=== PATIENT | female | born 1960 | race Caucasian/White ===

== ENCOUNTER 2017-02-01 23:27 | Emergency (ER) | payer SELFPAY ==
[~2017-02-01] VITALS: Ht 160 cm; Wt 66.8 kg
[~2017-02-01 23:27] MED LIST: CIPROFLOXACN500 MG PO; LORTAB 10-325 M1 TAB PO; METRONIDAZOL500 MG PO; NO
[2017-02-02 00:07] LABS: URINE BILIRUBIN - DIPSTICK NEGATIVE (NEGATIVE); URINE BLOOD DIPSTICK TRACE-LYSED (NEGATIVE); URINE CLARITY SLIGHT CLOUDY; URINE COLOR YELLOW; URINE GLUCOSE - DIPSTICK NEGATIVE (NEGATIVE); URINE KETONE NEGATIVE (NEGATIVE); URINE LEUK ESTERASE NEGATIVE (NEGATIVE); URINE NITRITE - DIPSTICK NEGATIVE (Negative); URINE PH 5.5 (4.5-8.0); URINE PROTEIN - DIPSTICK NEGATIVE (NEG-TRACE); URINE UROBILINOGEN - DIPSTICK 0.2 E.U./dL (0.2)
[2017-02-02 00:16] LABS: HEMATOCRIT 43.4 % (37.0-47.0); HEMOGLOBIN 14.4 g/dl (12.0-16.0); IMMATURE GRANULOCYTES 0.4 % (0.0-1.0); MEAN CORPUSCULAR HGB 29.9 pG CALC (26.0-32.0); MEAN CORPUSCULAR HGB CONC 33.2 g/L CALC (32.0-36.0); NEUT# 6.51 thou/uL (2.00-7.15); RED BLOOD COUNT 4.82 mill/uL (4.20-5.60); RED CELL DISTRI WIDTH 12.7 % (11.5-15.5)
[2017-02-02 00:32] LABS: ALBUMIN 4.4 g/dL (3.2-5.0); ALKALINE PHOSPHATASE 103 u/l (38-126); AMYLASE 79 u/l (30-110); ANION GAP 15 (6-22 (CALC)); BILIRUBIN, TOTAL 0.3 mg/dL (0.0-1.4); BUN 13 mg/dL (7-17); BUN/CREATININE RATIO 16 (12-20 (CALC)); CALCIUM 9.6 mg/dL (8.4-10.2); CARBON DIOXIDE 27 mmol/l (22-30); CHLORIDE 104 mmol/l (95-108); CREATININE 0.8 mg/dL (0.5-1.0); GFR > 60 ML/MIN (>=60 (CALC)); GFR FOR AFR.AMER. > 60 ML/MIN (>=60 (CALC)); GLUCOSE 91 mg/dL (65-105); LIPASE 135 u/l (23-300); POTASSIUM 3.9 mmol/l (3.5-5.1); SGOT/AST 23 u/l (14-36); SGPT/ALT 33 u/l (9-52); SODIUM 142 mmol/l (137-146); TOTAL PROTEIN 7.8 g/dL (6.3-8.2)
[2017-02-02 00:40] LABS: MYOGLOBIN 24 ng/mL (0 - 62)
[2017-02-02] MEDS ORDERED: CLARITHROMYC500 M2 PO (02:05)
[2017-02-02] MEDS ORDERED: AMPICILLIN500 MG PO (02:05)
[2017-02-02] MEDS ORDERED: PREVACID30 M1 PO (02:05)
[2017-02-02] MEDS ORDERED: ZOFRAN ODT4 MG PO (02:06)
[2017-02-02] MEDS ORDERED: ULTRAM50 M1 PO (02:18)
[2017-02-02 02:30] VITALS: BP 131/83
== END 2017-02-02 02:30 | disposition home or self-care (01) | DRG 392 ==
LOC: ED 23:27
PROVIDERS: Emergency Medicine
DX: R10.11 Right upper quadrant pain (principal); K27.9 Peptic ulcer, site unspecified, unspecified as acute or chronic, without hemorrhage or perforation; B96.81 Helicobacter pylori [H. pylori] as the cause of diseases classified elsewhere; R10.31 Right lower quadrant pain; R10.13 Epigastric pain; R11.0 Nausea; K59.00 Constipation, unspecified
CPT/HCPCS: Q9967

== ENCOUNTER 2024-08-01 01:17 | Emergency (ER) | payer SELFPAY ==
[2024-08-01] VITALS (7 sets, daily range): BP systolic 101–151; BP diastolic 56–81
[~2024-08-01] VITALS: Ht 160 cm; Wt 59.1 kg
[~2024-08-01 01:17] MED LIST changes: +AMPICILLIN500 MG PO; +CLARITHROMYC500 M2 PO; +PREVACID30 M1 PO; +ULTRAM50 M1 PO; +ZOFRAN ODT4 MG PO
[2024-08-01] MEDS ORDERED: ASPIRIN 81 MG/TAB PO ONE (01:35)
[2024-08-01] MEDS ORDERED: Heparin SODIUM (Porcine) 5,000 UNITS/ML SDV IV ONE (01:35)
[2024-08-01] MEDS ORDERED: NITROGLYCERIN IN D5W 250 ML IV ONE (01:35)
[2024-08-01] MEDS ORDERED: MORPHINE SULFATE 4 MG/ML VIAL IV ONE (01:35)
[2024-08-01 01:43] LABS: BASO% 0.3 % (0-3); HEMATOCRIT 43.9 % (37.0-47.0); HEMOGLOBIN 13.8 g/dl (12.0-16.0); LYMPH% 27.1 % (15-41); MEAN CELL VOLUME 94.6 fL CALC (80.0-100.0); MEAN CORPUSCULAR HGB 29.7 pG CALC (26.0-32.0); MEAN CORPUSCULAR HGB CONC 31.4 g/dL CAL (32.0-36.0); NEUT# 3.69 thou/uL (2.00-7.15); NEUT% 64.6 % (42-76); RED BLOOD COUNT 4.64 mill/uL (4.20-5.60); RED CELL DISTRI WIDTH 13.1 % (11.5-15.5)
[2024-08-01] MEDS ORDERED: Heparin SODIUM (Porcine) 500 ML IV ONE ×2 (01:49→02:00)
[2024-08-01 01:59] LABS: ALBUMIN 4.1 g/dL (3.2-5.0); BILIRUBIN, TOTAL 0.4 mg/dL (0.02-1.3); CREATININE 1.1 mg/dL (0.5-1.0); POTASSIUM 3.8 mmol/l (3.5-5.1); TOTAL PROTEIN 7.8 g/dL (6.3-8.2)
[2024-08-01 02:07] LABS: ACT PARTIAL THROMBO TIME 23.6 SECONDS (20.0-32.5); INTERNATIONAL NORMALIZED RATIO 0.9 RATIO (0.7-1.3)
[2024-08-01 02:08] LABS: PROTHROMBIN TIME 9.6 SECONDS (9.0-12.5)
== END 2024-08-01 02:35 | disposition short-term general hospital (02) | DRG 282 ==
LOC: ED 01:17
PROVIDERS: Family Medicine
DX: I21.3 ST elevation (STEMI) myocardial infarction of unspecified site (principal)
CPT/HCPCS: J1644; J2305